=== PATIENT | female | born 1990 | race African-American/Black ===

== ENCOUNTER 2023-12-13 01:11 | Emergency (ER) | payer SELFPAY ==
[2023-12-13] MEDS ORDERED: Ipratropium/Albuterol 3 ML NEB ONE (01:38)
[2023-12-13] MEDS ORDERED: Dexamethasone 4 MG TAB ONE (01:48)
== END 2023-12-13 05:30 | disposition home or self-care (01) ==
LOC: CSHERS 01:11
DX: J45.909 Unspecified asthma, uncomplicated (principal); F17.210 Nicotine dependence, cigarettes, uncomplicated
CPT/HCPCS: 71045; 94640; J7620; J8540